=== PATIENT | female | born 1955 | race Caucasian/White ===

== ENCOUNTER 2018-10-28 22:05 | Emergency (ER) | payer OTHER ==
[~2018-10-28] VITALS: Ht 160 cm; Wt 51.8 kg
[~2018-10-28 22:05] MED LIST: CEPH-443 PO; FEXO180T61 PO; IBUP-1542 PO
[2018-10-28 22:23] VITALS: Ht 160 cm; Wt 51.8 kg
[2018-10-29 01:30] VITALS: BP 152/68; PULSE 56; RESP 18
== END 2018-10-29 01:31 | disposition home or self-care (01) ==
LOC: FTE 22:05
DX: S60.460A Insect bite (nonvenomous) of right index finger, initial encounter (principal); S00.462A Insect bite (nonvenomous) of left ear, initial encounter; W57.XXXA Bitten or stung by nonvenomous insect and other nonvenomous arthropods, initial encounter; Y92.9 Unspecified place or not applicable
CPT/HCPCS: 99283